=== PATIENT | female | born 1970 | race Caucasian/White ===

== ENCOUNTER → 2016-10-05 | Outpatient (CLI) | payer OTHER, MEDICAID ==
--- NOTE | 2016-10-06 | ECWPNPC ---
PATIENT NAME: GABINO PRECIADO : 1970 GENDER: FEMALE VISIT DATE: 10/05/2016 DISCHARGE DATE: 10/05/16 1144 VISIT LOCKED DATE TIME: PHYSICIAN: YOSELIN PRIDE RESOURCE: YOSELIN PRIDE REASON FOR APPOINTMENT 1. 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 PAIN THE PATIENT DESCRIBES THE PAIN... THE PATIENT DESCRIBES THE PAIN... FALL RISK SCREENING: SCREENING :NO FALLS IN THE PAST YEAR CURRENT MEDICATIONS TAKING TRAZODONE HCL 100 MG TABLET 1 TABLET AT BEDTIME ORALLY ONCE A DAY TAKING FERROUS SULFATE 325 (65 FE) MG TABLET 1 TABLET ORALLY ONCE A DAY TAKING TRAMADOL HCL 50 MG TABLET 1 TAB ORALLY FOR PAIN Q8H PRN MDD 3 MEDICATION LIST REVIEWED AND RECONCILED WITH THE PATIENT PAST MEDICAL HISTORY NECK PAIN ANEMIA VITAMIN D DEFIENCY IRREGULAR HEARTBEAAT ALLERGIES PENICILLIN: HIVES SOCIAL HISTORY GENERAL: TOBACCO USE ARE YOU A:NONSMOKER LEARNING BARRIERS / SPECIAL NEEDS ORIENTED TO PLAN OF CARE: PATIENT, PAIN MANAGEMENT PATIENT, ORIENTED TO PLAN OF CARE: PATIENT, PAIN MANAGEMENT PATIENT. NEW PATIENT PAIN DIARY TODAY'S VISITNOTES FROM 0-10, WHAT LEVEL IS YOUR PAIN TODAY?0 PAIN CLINIC PFS, CLERGY, PUBLIC HEALTH REFERRALS PFS REFERRAL NEEDED?NO CLERGY REFERRAL NEEDED?NO PUBLIC HEALTH REFERRAL NEEDED?NO WAS THE PROVIDER NOTIFIED OF ANY PERTINENT INFO?NO PFS REFERRAL NEEDED?NO CLERGY REFERRAL NEEDED?NO PUBLIC HEALTH REFERRAL NEEDED?NO WAS THE PROVIDER NOTIFIED OF ANY PERTINENT INFO?NO REVIEW OF SYSTEMS CONSTITUTIONAL: ANY CHANGE IN YOUR MEDICAL CONDITION? NO . RECENT ILLNESS DENIES . CHILLS NO . FEVER NO . WEIGHT LOSS DENIES . INFECTION: DO YOU HAVE NEW INFECTIONS? NO . DO YOU HAVE HISTORY OF MRSA? NO . MUSCULOSKELETAL: ANY NEW PATTERNS OF PAIN OR NUMBNESS? NO . GASTROENTEROLOGY: ANY NEW CHANGE IN BOWEL CONTROL? NO . GENITOURINARY: ANY NEW CHANGE IN BLADDER CONTROL? NO . IS THERE A CHANCE YOU COULD BE ? NO . HEMATOLOGY/LYMPH: DO YOU TAKE ANY BLOOD THINNERS? (FOR EXAMPLE- COUMADIN, PLAVIX, AGGRENOX, PLATEL, PRADAXA, OR XARELTO) NO . WHEN WAS YOUR LAST DOSE? DATE: TIME: . NEUROLOGY: HAVE YOU FALLEN IN THE PAST 6 MONTHS? NO . ANY NEW EXTREMITY NUMBNESS OR WEAKNESS? NO . CARDIOLOGY: DO YOU HAVE A PACEMAKER OR DEFIBRILLATOR? NO . CHEST PAIN DENIES . SHORTNESS OF BREATH DENIES . RESPIRATORY: HAVE YOU BEEN SICK IN THE PAST WEEK? NO . FEVER NO . FLU LIKE SYMPTOMS? NO . COUGH NO, DENIES . SHORTNESS OF BREATH DENIES . INTEGUMENTARY: DO YOU HAVE ANY RASHES OR OPEN SORES? NO . ALLERGIC/IMMUNO: ARE YOU ALLERGIC TO SHELLFISH OR IV DYE? NO . ANY NEW ALLERGIES? NO . PSYCHIATRIC: DO YOU HAVE THOUGHTS OF HURTING YOURSELF OR SOMEONE ELSE? NO . ARE YOU ABUSED, NEGLECTED, OR IN AN UNSAFE ENVIRONMENT? NO . ENDOCRINOLOGY: ARE YOU DIABETIC? NO . OTHER: DO YOU NEED ANY PRESCRIPTIONS? NO . IF YES, PLEASE LIST: ____ . ANY NEW PROBLEMS WITH YOUR MEDICATIONS? NO . WHEN DID YOU LAST EAT? ____ . WHEN DID YOU LAST DRINK? ____ . WHAT DID YOU LAST DRINK? ____ . NAME OF PERSON DRIVING YOU HOME? ____ . DO YOU HAVE ANY OTHER QUESTIONS OR CONCERNS NO . REVIEWED BY: PROVIDER: YOSELIN ODN . VITAL SIGNS WT 145 LBS, HT 63", BMI 25.68 INDEX, BP 114/55 MM HG, HR 82 /MIN, RR 16 /MIN, TEMP 96.3 F, OXYGEN SAT % 98, NA INITIALS TL 1119. EXAMINATION GENERAL EXAMINATION: LUNGS:LUNG SOUNDS ARE CLEAR. HEART:HEART RATE REGULAR. MUSCULOSKELETAL:*, MUSCLE STRENGTH TESTING 5/5 BILATERAL, UPPER EXTREMITIES. PALPATION: NEGATIVE FOR PAIN OVER CERVICAL SPINE. NEGATIVE FOR PAIN OVER CERVICAL PARSPINALS. DIAGNOSTIC: . ASSESSMENTS MYALGIA - M79.1 (PRIMARY) SPONDYLOSIS WITHOUT MYELOPATHY OR RADICULOPATHY, CERVICAL REGION - M47.812 SPONDYLOSIS WITHOUT MYELOPATHY OR RADICULOPATHY, CERVICOTHORACIC REGION - M47.813 CERVICAL DISC DISORDER AT C6-C7 LEVEL WITH RADICULOPATHY - M50.123 TREATMENT MYALGIA CONTINUE TRAMADOL HCL TABLET, 50 MG, 1 TAB, ORALLY FOR PAIN, Q8H PRN MDD 3 PROCEDURE CODES FA211 ESTABILISHED PATIENT [facility] CHARGE FOLLOW UP 2 MONTHS ELECTRONICALLY SIGNED BY ARIAN JOSÉ ON 10/05/2016 AT 01:18 PM EST DISCLAIMER : THIS IS A VISIT SUMMARY EXTRACTED FROM THE [employer] CHART. IT IS NOT A COPY OF THE [employer] PROGRESS NOTE. MTDD
== END ==
LOC: M PAIN 11:00
PROVIDERS: ATTEND Nurse Practitioner Family
DX: Z09 Encounter for follow-up examination after completed treatment for conditions other than malignant neoplasm (principal); G89.29 Other chronic pain; M79.1 Myalgia; M47.812 Spondylosis without myelopathy or radiculopathy, cervical region; M47.813 Spondylosis without myelopathy or radiculopathy, cervicothoracic region; M50.123 Cervical disc disorder at C6-C7 level with radiculopathy; D64.9 Anemia, unspecified; E55.9 Vitamin D deficiency, unspecified; Z88.0 Allergy status to penicillin; Z79.891 Long term (current) use of opiate analgesic; Z79.899 Other long term (current) drug therapy

== ENCOUNTER 2016-10-14 09:42 | Emergency (ER) | payer MEDICAID, OTHER ==
[2016-10-14] MEDS ORDERED: KETOROLAC 30 MG/ML VIAL (J1885) As Ordered ONE (11:04)
[2016-10-14 11:26] LABS: BASO % 0.3 % (0.0-1.0); EOS # 0.1 K/mm3 (0.0-0.50); EOS % 1.6 % (0.0-3.0); LARGE UNSTAINED CELL # 0.1 K/mm3 (0.0-0.4); LARGE UNSTAINED CELL % 1.7 % (0.0-4.0); LYMPH # 1.7 K/mm3 (1.5-4.5); LYMPH % 29.4 % (24.0-44.0); MEAN CORPUSCULAR HEMOGLOBIN 29.7 pg (27.0-33.0); MEAN CORPUSCULAR HGB CONC 33.9 g/dl (32.0-36.5); MEAN CORPUSCULAR VOLUME 87.6 fl (80.0-96.0); MONO # 0.4 K/mm3 (0.0-0.8); MONO % 6.3 % (0.0-5.0); NEUTROPHILS # 3.5 K/mm3 (1.8-7.7); NEUTROPHILS % 60.7 % (36.0-66.0); PLATELET COUNT, AUTOMATED 210 k/mm3 (150-450); RED CELL DISTRIBUTION WIDTH 14.6 % (11.5-14.5); WHITE BLOOD COUNT 5.7 K/mm3 (4.0-10.0)
--- NOTE | 2016-10-14 11:50 | REP ---
CT STUDY OF THE ABDOMEN AND PELVIS WITHOUT IV OR ORAL CONTRAST: Renal stone protocol. HISTORY: Right-sided flank pain. Comparison study July 01, 2011. FINDINGS: Digital service liaison representative radiograph today demonstrates an IUD to the left of midline in the pelvis along with a vaginal tampon. The lung bases show some subsegmental discoid atelectasis in the right lower lobe posterior lung gutter which is a new finding. There is a thin sliver of pleural fluid in the right base as well. This could be a subtle or early infiltrate. The liver and spleen are homogeneous in texture. The liver measures 16.6 cm in vertical span in the midclavicular line, which is at the upper range of normal. This is unchanged. No focal hepatic lesion is seen. The gallbladder and the pancreas are unremarkable. No adrenal lesion is seen on either side. There is no evidence of hydronephrosis or intrarenal calculus in either kidney. The patient is apparently status post gastric bypass surgery. Small and large intestinal bowel loops are normal in the upper abdomen and pelvis. A normal appendix is seen in the right lower quadrant. There is a tiny supraumbilical ventral hernia transmitting a small quantity of intra-abdominal fat. The IUD is seen in good position in the uterus, which is tipped somewhat to the left. No adnexal or pelvic mass is seen. No adenopathy noted. Bone window settings show no bony destructive lesion. IMPRESSION: 1. Infiltrate versus subsegmental atelectasis in the posterior aspect of the right lower lobe with a small amount of right pleural fluid. 2. No urinary tract calculus or hydronephrosis seen. 3. Borderline sized liver unchanged. 4. Patient status post gastric bypass. IUD in place along with vaginal tampon noted incidentally. 5. Very small supraumbilical ventral hernia transmitting a small quantity of omental fat. Signed by Josemanuel Wolff MD 10/14/2016 06:35 P
[2016-10-14 11:56] LABS: ALBUMIN 3.3 GM/DL (3.2-5.2); ALBUMIN/GLOBULIN RATIO 0.89 (1.00-1.93); ALKALINE PHOSPHATASE 47 U/L (45-117); ALT/SGPT 19 U/L (12-78); AMYLASE 34 U/L (25-115); ANION GAP 6 MEQ/L (8-16); AST/SGOT 23 U/L (15-37); BILIRUBIN,DIRECT < 0.1 MG/DL (0.0-0.2); BILIRUBIN,TOTAL 0.3 MG/DL (0.2-1.0); BLOOD UREA NITROGEN 14 MG/DL (7-18); CALCIUM LEVEL 8.2 MG/DL (8.5-10.1); CARBON DIOXIDE LEVEL 27 MEQ/L (21-32); CHLORIDE LEVEL 105 MEQ/L (98-107); CREATININE FOR GFR 0.75 MG/DL (0.55-1.02); GLOMERULAR FILTRATION RATE > 60.0 (>58); GLUCOSE, FASTING 70 MG/DL (70-105); POTASSIUM SERUM 4.5 MEQ/L (3.5-5.1); SODIUM LEVEL 138 MEQ/L (136-145)
--- NOTE | 2016-10-14 13:13 | REP ---
Chest two views HISTORY: Pleural effusion Comparison: 07/18/2016 The lungs are clear. The heart is normal in size. The pulmonary vasculature is normal in appearance. The bony structure is intact. IMPRESSION: No acute disease. Signed by Kermit Pappas MD 10/14/2016 01:04 P
--- NOTE | 2016-10-14 14:43 | EDDOCDS ---
Nurse's Notes [facility] Name: Gladys Temple Age: 46 yrs Sex: Female : 1970 Arrival Date: 10/14/2016 Time: 09:42 Bed I5 / M5 Private MD: Myriam Hurst Diagnosis: Pleural effusion in other conditions classified elsewhere;Abdominal and pelvic pain Presentation: 10/14 09:54 Presenting complaint: Patient states: Right low back pain began suddenly yesterday no mlb1 known injury. Acute neurological deficits are not present. Mechanism of Injury: No Mechanism of Injury. Adult Sepsis Screening: The patient does not have new or worsening altered mentation. Patient's respiratory rate is less than 22. Systolic blood pressure is greater than 100. Patient has a qSOFA score of 0- Negative Sepsis Screen. Suicide/Homicide risk assessment- the patient denies having any suicidal and/or homicidal ideations and does not present with any other emotional, behavioral or mental health complaints. Status: Patient is not a social service worker or dependent. Transition of care: patient was not received from another setting of care. 09:54 Acuity: PRABHJOT Level 3 mlb1 09:54 Method Of Arrival: Walkin/Carried/Asstd mlb1 Triage Assessment: 09:55 General: Appears in no apparent distress, Behavior is appropriate for age, cooperative. mlb1 Pain: Location: right low back Pain currently is 8 out of 10 on a pain scale. HIV screening NA for this visit Offered previously. 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 trazodone 50 mg Oral tab nightly 2. tramadol 50 mg Oral tab every 8 hours as needed - PMHx: cervical disc issues; insomnia; - PSHx: gastric sleeve; - Social history: Smoking status: Patient states was never smoker of tobacco. No barriers to communication noted, The patient speaks fluent Irish, Speaks appropriately for age. - Family history: Not pertinent. - : The pt / caregiver states he / she is not on anticoagulants. Home medication list is obtained from the patient. - Exposure Risk Screening:: None identified. Screenin:16 Screening information is obtained from the patient. Fall risk: No risks identified. ttb Assistance ADL's: requires no assistance with activities of daily living. Abuse/DV Screen: The patient / caregiver reports he/she is: not in a situation that causes fear, pain or injury. Nutritional screening: No deficits noted. Advance Directives: Currently, there is no health care proxy. home support is adequate. Assessment: 11:16 General: Appears in no apparent distress, uncomfortable, well nourished, well groomed, ttb Behavior is appropriate for age, cooperative, pleasant. Pain: Location: right mid / lower back. Neurological: Level of Consciousness is awake, alert. Cardiovascular: Chest pain is denied. Respiratory: No deficits noted. Airway is patent Denies cough, shortness of breath. GI: Abdomen is non- distended Reports mid back pain right sided. : Denies burning with urination, urinary frequency, urgency, vaginal bleeding. Derm: Skin is normal. Musculoskeletal: Range of motion intact in all extremities. Injury Description: No known injury. 12:30 General: Appears in no apparent distress, comfortable, Behavior is appropriate for age, ead cooperative. Neurological: No deficits noted. Respiratory: Airway is patent Respiratory effort is even, unlabored. Derm: Skin is pink, warm & dry. Musculoskeletal: Reports pain in back and right low back. 13:55 General: Appears reports adequate pain control. very casual presentation. comfort jmk measures offered.. Vital Signs: 09:43 BP 109 / 57; Pulse 83; Resp 20; Temp 98.2; Pulse Ox 99% ; Weight 63.5 kg; Height 5 ft. elp 4 in. (162.56 cm); Pain 8/10; 14:39 BP 107 / 59; Pulse 65; Resp 18; Temp 97.8(TE); Pulse Ox 98% on R/A; Pain 5/10; nb2 09:43 Body Mass Index 24.03 (63.50 kg, 162.56 cm) [facility] Vitals: 09:43 Log In Time: October 14, 2016 at 09:41. [facility] ED Course: 09:42 Patient visited by Xin Cochran PCA. elp 09:42 Patient moved to Waiting elp 09:43 Myriam Hurst is Private Physician. elp 09:43 Patient visited by Xin Cochran PCA. elp 09:43 Patient moved to Pre RCE elp 09:54 Patient visited by Brandon Harvey RN. mlb1 09:54 Triage Initiated mlb1 09:56 Patient visited by Brandon Harvey RN. mlb1 10:27 Patient moved to Triage 3 kc3 10:33 Jose Miguel Dyson PA is PHCP. btw 10:33 Genevieve Reeder MD is Attending Physician. btw 10:33 Patient visited by Jose Miguel Dyson PA. btw 10:58 Patient name changed from Gladys\S\Sayda\S\Temple\S\ to Gladys\S\K\S\Temple. EDMS 10:59 [facility] Payment Agreement was scanned into [employer] and attached to record. lg 11:16 Patient moved to TR4 mcp 11:16 The patient / caregiver is instructed regarding the plan of care and ED course. ttb Accompanied by Friend, Patient has correct armband on for positive identification. 11:16 Amylase Sent. ttb 11:16 Basic Metabolic Profile Sent. ttb 11:16 CBC with Diff Sent. ttb 11:16 Lipase Sent. ttb 11:16 Liver Profile Sent. ttb 11:16 Urinalysis Sent. ttb 11:16 Urine Culture Sent. ttb 11:16 No IV's were initiated during this patient's visit. Labs drawn. (by ED staff). Urine ttb collected. Clean catch specimen. 11:18 Patient visited by Bella Muñoz RN. ttb 11:52 CT ABD & PELVIS: No Contrast Returned. EDMS 12:03 Patient moved to I5 / M5 cmb 12:25 Patient visited by Livier Funez. nb2 12:33 Patient visited by Arcelia Cuadra,KENY. ead 12:33 -Blood Culture Sent. ead 12:33 Inserted saline lock: 22 gauge in right hand and blood collected. The patient tolerated ead the procedure well. 12:40 BLOOD CULTURES Sent. nb2 13:34 Chest, 2 View (pa\E\lat) Returned. EDMS 13:37 Patient visited by Livier Funez. nb2 13:56 Patient visited by Yonathan Curran,KENY. jmk 14:14 Myriam Hurst is Referral Physician. btw 14:40 Patient visited by Livier Funez. nb2 14:40 Discontinued lock intact, bleeding controlled, pressure dressing applied, No jmk redness/swelling at site. No procedures done that require assistance. Administered Medications: 11:16 Drug: ketorolac 30 mg [ketorolac 30 mg/mL (1 mL) injection solution (1 mL)] Route: IM; ttb Site: right gluteus; Order Results: Lab Order: Amylase; SPEC'10/14/16 11:07 Test: AMYLASE; Value: 34; Range: 25-115; Units: U/L; Status: F Lab Order: Basic Metabolic Profile; SPEC10/14/16 11:07 Test: GLUCOSE, FASTING; Value: 70; Range: 70-105; Units: MG/DL; Status: F Test: BLOOD UREA NITROGEN; Value: 14; Range: 7-18; Units: MG/DL; Status: F Test: CREATININE FOR GFR; Value: 0.75; Range: 0.55-1.02; Units: MG/DL; Status: F Test: GLOMERULAR FILTRATION RATE; Value: > 60.0; Range: >58; Status: F Test: SODIUM LEVEL; Value: 138; Range: 136-145; Units: MEQ/L; Status: F Test: POTASSIUM SERUM; Value: 4.5; Range: 3.5-5.1; Units: MEQ/L; Status: F Test: CHLORIDE LEVEL; Value: 105; Range: 98-107; Units: MEQ/L; Status: F Test: CARBON DIOXIDE LEVEL; Value: 27; Range: 21-32; Units: MEQ/L; Status: F Test: ANION GAP; Value: 6; Range: 8-16; Abnormal: Below low normal; Units: MEQ/L; Status: F Test: CALCIUM LEVEL; Value: 8.2; Range: 8.5-10.1; Abnormal: Below low normal; Units: MG/DL; Status: F Test Note: ; Units are mL/min/1.73 m2 Chronic Kidney Disease Staging per NKF: Stage I & II GFR >=60 Normal to Mildly Decreased Stage III GFR 30-59 Moderately Decreased Stage IV GFR 15-29 Severely Decreased Stage V GFR <15 Very Little GFR Left ESRD GFR <15 on [facility] Lab Order: CBC with Diff; SPEC'10/14/16 11:07 Test: WHITE BLOOD COUNT; Value: 5.7; Range: 4.0-10.0; Units: K/mm3; Status: F Test: RED BLOOD COUNT; Value: 4.12; Range: 4.00-5.40; Units: M/mm3; Status: F Test: HEMOGLOBIN; Value: 12.2; Range: 12.0-16.0; Units: g/dl; Status: F Test: HEMATOCRIT; Value: 36.1; Range: 36.0-47.0; Units: %; Status: F Test: MEAN CORPUSCULAR VOLUME; Value: 87.6; Range: 80.0-96.0; Units: fl; Status: F Test: MEAN CORPUSCULAR HEMOGLOBIN; Value: 29.7; Range: 27.0-33.0; Units: pg; Status: F Test: MEAN CORPUSCULAR HGB CONC; Value: 33.9; Range: 32.0-36.5; Units: g/dl; Status: F Test: RED CELL DISTRIBUTION WIDTH; Value: 14.6; Range: 11.5-14.5; Abnormal: Above high normal; Units: %; Status: F Test: PLATELET COUNT, AUTOMATED; Value: 210; Range: 150-450; Units: k/mm3; Status: F Test: NEUTROPHILS %; Value: 60.7; Range: 36.0-66.0; Units: %; Status: F Test: LYMPH %; Value: 29.4; Range: 24.0-44.0; Units: %; Status: F Test: MONO %; Value: 6.3; Range: 0.0-5.0; Abnormal: Above high normal; Units: %; Status: F Test: EOS %; Value: 1.6; Range: 0.0-3.0; Units: %; Status: F Test: BASO %; Value: 0.3; Range: 0.0-1.0; Units: %; Status: F Test: LARGE UNSTAINED CELL %; Value: 1.7; Range: 0.0-4.0; Units: %; Status: F Test: NEUTROPHILS #; Value: 3.5; Range: 1.8-7.7; Units: K/mm3; Status: F Test: LYMPH #; Value: 1.7; Range: 1.5-4.5; Units: K/mm3; Status: F Test: MONO #; Value: 0.4; Range: 0.0-0.8; Units: K/mm3; Status: F Test: EOS #; Value: 0.1; Range: 0.0-0.50; Units: K/mm3; Status: F Test: BASO #; Value: 0.0; Range: 0.0-0.2; Units: K/mm3; Status: F Test: LARGE UNSTAINED CELL #; Value: 0.1; Range: 0.0-0.4; Units: K/mm3; Status: F Lab Order: Lipase; [facility]' 10/14/16 11:07 Test: LIPASE; Value: 159; Range: 73-393; Units: U/L; Status: F Lab Order: Liver Profile; [facility]' 10/14/16 11:07 Test: AST/SGOT; Value: 23; Range: 15-37; Units: U/L; Status: F Test: ALT/SGPT; Value: 19; Range: 12-78; Units: U/L; Status: F Test: ALKALINE PHOSPHATASE; Value: 47; Range: 45-117; Units: U/L; Status: F Test: BILIRUBIN,TOTAL; Value: 0.3; Range: 0.2-1.0; Units: MG/DL; Status: F Test: BILIRUBIN,DIRECT; Value: < 0.1; Range: 0.0-0.2; Units: MG/DL; Status: F Test: TOTAL PROTEIN; Value: 7.0; Range: 6.4-8.2; Units: GM/DL; Status: F Test: ALBUMIN; Value: 3.3; Range: 3.2-5.2; Units: GM/DL; Status: F Test: ALBUMIN/GLOBULIN RATIO; Value: 0.89; Range: 1.00-1.93; Abnormal: Below low normal; Status: F Lab Order: Urinalysis; SPEC' 10/14/16 11:07 Test: APPEARANCE, URINE; Value: CLEAR; Range: CLEAR; Status: F Test: COLOR, URINE; Value: YELLOW; Range: YELLOW; Status: F Test: PH,URINE; Value: 5.0; Range: 5.0-9.0; Units: UNITS; Status: F Test: SPECIFIC GRAVITY URINE AUTO; Value: 1.026; Range: 1.002-1.035; Status: F Test: PROTEIN, URINE AUTO; Value: NEGATIVE; Range: NEGATIVE; Units: mg/dL; Status: F Test: GLUCOSE, URINE (UA) AUTO; Value: NEGATIVE; Range: NEGATIVE; Units: mg/dL; Status: F Test: KETONE, URINE AUTO; Value: TRACE; Range: NEGATIVE; Abnormal: Above high normal; Units: mg/dL; Status: F Test: UROBILINOGEN, URINE AUTO; Value: 0.2; Range: 0.0-2.0; Units: mg/dL; Status: F Test: BILIRUBIN, URINE AUTO; Value: NEGATIVE; Range: NEGATIVE; Status: F Test: NITRITE, URINE AUTO; Value: NEGATIVE; Range: NEGATIVE; Status: F Test: LEUKOCYTE ESTERASE, URINE AUTO; Value: NEGATIVE; Range: NEGATIVE; Status: F Test: BLOOD, URINE BLOOD; Value: 1+; Range: NEGATIVE; Abnormal: Above high normal; Status: F Test: WBC, URINE AUTO; Value: 1; Range: 0-3; Units: /HPF; Status: F Test: RBC, URINE AUTO; Value: 4; Range: 0-3; Abnormal: Above high normal; Units: /HPF; Status: F Test: BACTERIA, URINE AUTO; Value: NEGATIVE; Range: NEGATIVE; Status: F Test: SQUAMOUS EPITHELIAL CELL UR AU; Value: 4; Range: 0-6; Units: /HPF; Status: F Test: MUCUS, URINE; Value: SMALL; Range: NEGATIVE; Status: F Test: HYALINE CAST, URINE AUTO; Value: 0; Range: 0-1; Units: /LPF; Status: F Radiology Order: CT ABD & PELVIS: No Contrast Test: CT ABD & PELVIS: No Contrast REASON FOR EXAMINATION: RIGHT flank pain; CT STUDY OF THE ABDOMEN AND PELVIS WITHOUT IV OR ORAL CONTRAST: Renal stone; protocol.; ; HISTORY: Right-sided flank pain.; ; Comparison study July 01, 2011.; ; FINDINGS: Digital pipeline dispatch operator radiograph today demonstrates an IUD to the left of; midline in the pelvis along with a vaginal tampon. The lung bases show some; subsegmental discoid atelectasis in the right lower lobe posterior lung gutter; which is a new finding. There is a thin sliver of pleural fluid in the right; base as well. This could be a subtle or early infiltrate.; ; The liver and spleen are homogeneous in texture. The liver measures 16.6 cm in; vertical span in the midclavicular line, which is at the upper range of normal.; This is unchanged. No focal hepatic lesion is seen. The gallbladder and the; pancreas are unremarkable. No adrenal lesion is seen on either side.; ; There is no evidence of hydronephrosis or intrarenal calculus in either kidney.; The patient is apparently status post gastric bypass surgery. Small and large; intestinal bowel loops are normal in the upper abdomen and pelvis. A normal; appendix is seen in the right lower quadrant. There is a tiny supraumbilical; ventral hernia transmitting a small quantity of intra-abdominal fat.; ; The IUD is seen in good position in the uterus, which is tipped somewhat to the; left. No adnexal or pelvic mass is seen. No adenopathy noted. Bone window; settings show no bony destructive lesion.; ; IMPRESSION:; 1. Infiltrate versus subsegmental atelectasis in the posterior aspect of the; right lower lobe with a small amount of right pleural fluid.; 2. No urinary tract calculus or hydronephrosis seen.; 3. Borderline sized liver unchanged.; 4. Patient status post gastric bypass. IUD in place along with vaginal tampon; noted incidentally.; 5. Very small supraumbilical ventral hernia transmitting a small quantity of; omental fat.; ; ; ; ; Unreviewed; Radiology Order: Chest, 2 View (pa\E\lat) Test: Chest, 2 View (pa\E\lat) REASON FOR EXAMINATION: ? pleural effusion on abd CT; Chest two views; ; HISTORY: Pleural effusion; ; Comparison: 07/18/2016; ; The lungs are clear. The heart is normal in size. The pulmonary vasculature is; normal in appearance. The bony structure is intact.; ; IMPRESSION: No acute disease.; ; ; Signed by; Kermit Pappas MD 10/14/2016 01:04 P; Outcome: 11:16 CT Study completed. ttb 14:15 Discharge ordered by Provider. btw 14:40 Discharge Assessment: Patient awake, alert and oriented x 3. No cognitive and/or jmk functional deficits noted. Patient verbalized understanding of disposition instructions. patient administered narcotics - no. The following High Risk Discharge criteria are identified: None. Discharged to home ambulatory. Condition: good. Discharge instructions given to patient, Instructed on discharge instructions, follow up and referral plans. medication usage, no driving heavy equipment, Demonstrated understanding of instructions, medications, Pt was receptive of discharge instructions/ teaching. Prescriptions given X 1. Property :Personal belongings accompany Pt. 14:42 Patient left the ED. adonay Signatures: Dispatcher [employer] EDYonathan GomezRN Ivon Pelayo RN Dion Rodriguez mcp, Brandon Weinberg lg RN RN mlb1 Jose Miguel Dyson PA PA Dennise Dos Santos Teresa RN RN ttb Xin Cocharn, Arcelia AstorgaRN Ivana MahanRN RN kc3 Livier Funez2 TALA
--- NOTE | 2016-10-14 14:43 | EDDOCDS ---
Physician Documentation [facility] Name: Gladys Temple Age: 46 yrs Sex: Female : 1970 Arrival Date: 10/14/2016 Time: 09:42 Bed I5 / M5 Private MD: Myriam Hurst Disposition: 10/14/16 14:15 Discharged to Home/Self Care. Impression: Pleural effusion in other conditions classified elsewhere, Abdominal and pelvic pain. - Condition is Stable. - Discharge Instructions: Pleural Effusion, Flank Pain, Uybs-tz-Teib. - Prescriptions for Zithromax Z- Shaheen 250 mg Oral Tablet - take 1 tablet by ORAL route as directed for 5 days Day 1- take two tablets once. Day 2, 3, 4 , 5 take one tablet once daily.; 6 tablet. - Medication Reconciliation, Local Pharmacy Hours form. - Follow up: Myriam Hurst; When: Call to arrange an appointment; Reason: Further diagnostic work-up, Recheck today's complaints, Continuance of care. - Problem is new. - Symptoms are unchanged. Historical: - Allergies: PENICILLINS; - Home Meds: 1. trazodone 50 mg Oral tab nightly 2. tramadol 50 mg Oral tab every 8 hours as needed - PMHx: cervical disc issues; insomnia; - PSHx: gastric sleeve; - Social history: Smoking status: Patient states was never smoker of tobacco. No barriers to communication noted, The patient speaks fluent Chinese, Speaks appropriately for age. - Family history: Not pertinent. - : The pt / caregiver states he / she is not on anticoagulants. Home medication list is obtained from the patient. - Exposure Risk Screening:: None identified. DIRECTOR TRANSLATION: 10/14 09:56 LMP 10/12/2016 mlb1 Vital Signs: 09:43 BP 109 / 57; Pulse 83; Resp 20; Temp 98.2; Pulse Ox 99% ; Weight 63.5 kg / 139.99 lbs; elp Height 5 ft. 4 in. (162.56 cm); Pain 8/10; 14:39 BP 107 / 59; Pulse 65; Resp 18; Temp 97.8(TE); Pulse Ox 98% on R/A; Pain 5/10; nb2 09:43 Body Mass Index 24.03 (63.50 kg, 162.56 cm) elp MDM: 10:44 Financial registration complete. lg 10:45 ketorolac 30 mg IM once ordered. btw 10:46 Amylase Ordered. EDMS 10:46 Basic Metabolic Profile Ordered. EDMS 10:46 CBC with Diff Ordered. EDMS 10:46 Lipase Ordered. EDMS 10:46 Liver Profile Ordered. EDMS 10:46 Urinalysis Ordered. EDMS 10:46 Urine Culture Ordered. EDMS 10:47 NOTHING BY MOUTH+DIET ordered. EDMS 10:48 CT ABD & PELVIS: No Contrast Ordered. EDMS 10:59 [facility] [place] was scanned into [employer] and attached to record. lg 12:02 Basic Metabolic Profile Reviewed. btw 12:02 CBC with Diff Reviewed. btw 12:02 Liver Profile Reviewed. btw 12:02 Urinalysis Reviewed. btw 12:02 Amylase Reviewed. btw 12:02 Lipase Reviewed. btw 12:02 CT ABD & PELVIS: No Contrast Reviewed. btw 12:08 IV Saline Lock ordered. btw 12:09 Chest, 2 View (pa\E\lat) Ordered. EDMS 12:15 -Blood Culture (Adults Only), peripheral from different site, or from device/port/PICC btw etc. if present ordered. 12:17 -Blood Culture Ordered. EDMS 12:18 -Blood Culture (Adults Only), peripheral from different site, or from device/port/PICC nb2 etc. if present complete. 12:18 BLOOD CULTURES Ordered. EDMS Administered Medications: 11:16 Drug: ketorolac 30 mg [ketorolac 30 mg/mL (1 mL) injection solution (1 mL)] Route: IM; ttb Site: right gluteus; Signatures: Dispatcher MedHost EDMS Yonathan Curran,RN RN Dion Benson, Reg Reg lg Brandon Harvey RN RN mlb1 Jose Miguel Dyson PA PA btw Bella Muñoz RN RN ttb Livier Funez2 The chart was reviewed and I authenticate all verbal orders and agree with the evaluation and treatment provided.Attachments: 10:59 [facility] Payment Agreement lg MTDD
--- NOTE | 2016-10-16 15:42 | EDDOCDS ---
Physician Documentation [facility] Name: Gladys Temple Age: 46 yrs Sex: Female : 1970 Arrival Date: 10/14/2016 Time: 09:42 Bed I5 / M5 Private MD: Myriam Hurst Disposition: 10/14/16 14:15 Discharged to Home/Self Care. Impression: Pleural effusion in other conditions classified elsewhere, Abdominal and pelvic pain. - Condition is Stable. - Discharge Instructions: Pleural Effusion, Flank Pain, Euob-yd-Gocl. - Prescriptions for Zithromax Z- Shaheen 250 mg Oral Tablet - take 1 tablet by ORAL route as directed for 5 days Day 1- take two tablets once. Day 2, 3, 4 , 5 take one tablet once daily.; 6 tablet. - Medication Reconciliation, Local Pharmacy Hours form. - Follow up: Myriam Hurst; When: Call to arrange an appointment; Reason: Further diagnostic work-up, Recheck today's complaints, Continuance of care. - Problem is new. - Symptoms are unchanged. Historical: - Allergies: PENICILLINS; - Home Meds: 1. trazodone 50 mg Oral tab nightly 2. tramadol 50 mg Oral tab every 8 hours as needed - PMHx: cervical disc issues; insomnia; - PSHx: gastric sleeve; - Social history: Smoking status: Patient states was never smoker of tobacco. No barriers to communication noted, The patient speaks fluent Romanian, Speaks appropriately for age. - Family history: Not pertinent. - : The pt / caregiver states he / she is not on anticoagulants. Home medication list is obtained from the patient. - Exposure Risk Screening:: None identified. 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 4 in. (162.56 cm); Pain 8/10; 14:39 BP 107 / 59; Pulse 65; Resp 18; Temp 97.8(TE); Pulse Ox 98% on R/A; Pain 5/10; nb2 09:43 Body Mass Index 24.03 (63.50 kg, 162.56 cm) elp MDM: 10:44 Financial registration complete. lg 10:45 ketorolac 30 mg IM once ordered. btw 10:46 Amylase Ordered. EDMS 10:46 Basic Metabolic Profile Ordered. EDMS 10:46 CBC with Diff Ordered. EDMS 10:46 Lipase Ordered. EDMS 10:46 Liver Profile Ordered. EDMS 10:46 Urinalysis Ordered. EDMS 10:46 Urine Culture Ordered. EDMS 10:47 NOTHING BY MOUTH+DIET ordered. EDMS 10:48 CT ABD & PELVIS: No Contrast Ordered. EDMS 10:59 [facility] Payment Agreement was scanned into Better[employer] and attached to record. lg 12:02 Basic Metabolic Profile Reviewed. btw 12:02 CBC with Diff Reviewed. btw 12:02 Liver Profile Reviewed. btw 12:02 Urinalysis Reviewed. btw 12:02 Amylase Reviewed. btw 12:02 Lipase Reviewed. btw 12:02 CT ABD & PELVIS: No Contrast Reviewed. btw 12:08 IV Saline Lock ordered. btw 12:09 Chest, 2 View (pa\E\lat) Ordered. EDMS 12:15 -Blood Culture (Adults Only), peripheral from different site, or from device/port/PICC btw etc. if present ordered. 12:17 -Blood Culture Ordered. EDMS 12:18 -Blood Culture (Adults Only), peripheral from different site, or from device/port/PICC nb2 etc. if present complete. 12:18 BLOOD CULTURES Ordered. EDMS 15:22 T-Sheet-- Draft Copy was scanned into [employer] and attached to record. gb Administered Medications: 11:16 Drug: ketorolac 30 mg [ketorolac 30 mg/mL (1 mL) injection solution (1 mL)] Route: IM; ttb Site: right gluteus; Signatures: Dispatcher MedHost EDMS Yonathan Curran,RN RN Rochelle Miller, Reg Reg Dion Banegas, Reg Reg Brandon Phelps RN RN mlb1 Jose Miguel Dyson PA PA btw Bella Muñoz RN RN ttb Livier Funez nb2 The chart was reviewed and I authenticate all verbal orders and agree with the evaluation and treatment provided.Attachments: 10:59 [facility] Payment Agreement lg 15:22 T-Sheet-- Draft Copy gb Chart Complete MTDD
--- NOTE | 2016-10-16 15:42 | EDDOCDS ---
Nurse's Notes [facility] Name: Gladys Temple Age: 46 yrs Sex: Female : 1970 Arrival Date: 10/14/2016 Time: 09:42 Bed I5 / M5 Private MD: Myriam Hurst Diagnosis: Pleural effusion in other conditions classified elsewhere;Abdominal and pelvic pain Presentation: 10/14 09:54 Presenting complaint: Patient states: Right low back pain began suddenly yesterday no mlb1 known injury. Acute neurological deficits are not present. Mechanism of Injury: No Mechanism of Injury. Adult Sepsis Screening: The patient does not have new or worsening altered mentation. Patient's respiratory rate is less than 22. Systolic blood pressure is greater than 100. Patient has a qSOFA score of 0- Negative Sepsis Screen. Suicide/Homicide risk assessment- the patient denies having any suicidal and/or homicidal ideations and does not present with any other emotional, behavioral or mental health complaints. Status: Patient is not a career services representative or dependent. Transition of care: patient was not received from another setting of care. 09:54 Acuity: PRABHJOT Level 3 mlb1 09:54 Method Of Arrival: Walkin/Carried/Asstd mlb1 Triage Assessment: 09:55 General: Appears in no apparent distress, Behavior is appropriate for age, cooperative. mlb1 Pain: Location: right low back Pain currently is 8 out of 10 on a pain scale. HIV screening NA for this visit Offered previously. EPIC WILLOW ANALYST: 09:56 LMP 10/12/2016 mlb1 Historical: - Allergies: PENICILLINS; - Home Meds: 1. trazodone 50 mg Oral tab nightly 2. tramadol 50 mg Oral tab every 8 hours as needed - PMHx: cervical disc issues; insomnia; - PSHx: gastric sleeve; - Social history: Smoking status: Patient states was never smoker of tobacco. No barriers to communication noted, The patient speaks fluent Burmese, Speaks appropriately for age. - Family history: Not pertinent. - : The pt / caregiver states he / she is not on anticoagulants. Home medication list is obtained from the patient. - Exposure Risk Screening:: None identified. Screenin:16 Screening information is obtained from the patient. Fall risk: No risks identified. ttb Assistance ADL's: requires no assistance with activities of daily living. Abuse/DV Screen: The patient / caregiver reports he/she is: not in a situation that causes fear, pain or injury. Nutritional screening: No deficits noted. Advance Directives: Currently, there is no health care proxy. home support is adequate. Assessment: 11:16 General: Appears in no apparent distress, uncomfortable, well nourished, well groomed, ttb Behavior is appropriate for age, cooperative, pleasant. Pain: Location: right mid / lower back. Neurological: Level of Consciousness is awake, alert. Cardiovascular: Chest pain is denied. Respiratory: No deficits noted. Airway is patent Denies cough, shortness of breath. GI: Abdomen is non- distended Reports mid back pain right sided. : Denies burning with urination, urinary frequency, urgency, vaginal bleeding. Derm: Skin is normal. Musculoskeletal: Range of motion intact in all extremities. Injury Description: No known injury. 12:30 General: Appears in no apparent distress, comfortable, Behavior is appropriate for age, ead cooperative. Neurological: No deficits noted. Respiratory: Airway is patent Respiratory effort is even, unlabored. Derm: Skin is pink, warm & dry. Musculoskeletal: Reports pain in back and right low back. 13:55 General: Appears reports adequate pain control. very casual presentation. comfort jmk measures offered.. Vital Signs: 09:43 BP 109 / 57; Pulse 83; Resp 20; Temp 98.2; Pulse Ox 99% ; Weight 63.5 kg; Height 5 ft. elp 4 in. (162.56 cm); Pain 8/10; 14:39 BP 107 / 59; Pulse 65; Resp 18; Temp 97.8(TE); Pulse Ox 98% on R/A; Pain 5/10; nb2 09:43 Body Mass Index 24.03 (63.50 kg, 162.56 cm) [facility] Vitals: 09:43 Log In Time: October 14, 2016 at 09:41. [facility] ED Course: 09:42 Patient visited by Xin Cochran PCA. elp 09:42 Patient moved to Waiting elp 09:43 Myriam Hurst is Private Physician. elp 09:43 Patient visited by Xin Cochran PCA. elp 09:43 Patient moved to Pre RCE elp 09:54 Patient visited by Brandon Harvey RN. mlb1 09:54 Triage Initiated mlb1 09:56 Patient visited by Brandon Harvey RN. mlb1 10:27 Patient moved to Triage 3 kc3 10:33 Jose Miguel Dyson PA is PHCP. btw 10:33 Genevieve Reeder MD is Attending Physician. btw 10:33 Patient visited by Jose Miguel Dyson PA. btw 10:58 Patient name changed from Gladys\S\Sayda\S\Temple\S\ to Gladys\S\K\S\Temple. EDMS 10:59 [facility] Payment Agreement was scanned into [employer] and attached to record. lg 11:16 Patient moved to TR4 mcp 11:16 The patient / caregiver is instructed regarding the plan of care and ED course. ttb Accompanied by Friend, Patient has correct armband on for positive identification. 11:16 Amylase Sent. ttb 11:16 Basic Metabolic Profile Sent. ttb 11:16 CBC with Diff Sent. ttb 11:16 Lipase Sent. ttb 11:16 Liver Profile Sent. ttb 11:16 Urinalysis Sent. ttb 11:16 Urine Culture Sent. ttb 11:16 No IV's were initiated during this patient's visit. Labs drawn. (by ED staff). Urine ttb collected. Clean catch specimen. 11:18 Patient visited by Bella Muñoz RN. ttb 11:52 CT ABD & PELVIS: No Contrast Returned. EDMS 12:03 Patient moved to I5 / M5 cmb 12:25 Patient visited by Livier Funez. nb2 12:33 Patient visited by Arcelia Cuadra,KENY. ead 12:33 -Blood Culture Sent. ead 12:33 Inserted saline lock: 22 gauge in right hand and blood collected. The patient tolerated ead the procedure well. 12:40 BLOOD CULTURES Sent. nb2 13:34 Chest, 2 View (pa\E\lat) Returned. EDMS 13:37 Patient visited by Livier Funez. nb2 13:56 Patient visited by Yonathan Curran,KENY. jmk 14:14 Myriam Hurst is Referral Physician. btw 14:40 Patient visited by Livier Funez. nb2 14:40 Discontinued lock intact, bleeding controlled, pressure dressing applied, No jmk redness/swelling at site. No procedures done that require assistance. 15:22 T-Sheet-- Draft Copy was scanned into [employer] and attached to record. gb 19:10 CT ABD & PELVIS: No Contrast Returned. EDMS Administered Medications: 11:16 Drug: ketorolac 30 mg [ketorolac 30 mg/mL (1 mL) injection solution (1 mL)] Route: IM; ttb Site: right gluteus; Order Results: Lab Order: Amylase; SPEC'M 10/14/16 11:07 Test: AMYLASE; Value: 34; Range: 25-115; Units: U/L; Status: F Lab Order: Basic Metabolic Profile; SPEC'M 10/14/16 11:07 Test: GLUCOSE, FASTING; Value: 70; Range: 70-105; Units: MG/DL; Status: F Test: BLOOD UREA NITROGEN; Value: 14; Range: 7-18; Units: MG/DL; Status: F Test: CREATININE FOR GFR; Value: 0.75; Range: 0.55-1.02; Units: MG/DL; Status: F Test: GLOMERULAR FILTRATION RATE; Value: > 60.0; Range: >58; Status: F Test: SODIUM LEVEL; Value: 138; Range: 136-145; Units: MEQ/L; Status: F Test: POTASSIUM SERUM; Value: 4.5; Range: 3.5-5.1; Units: MEQ/L; Status: F Test: CHLORIDE LEVEL; Value: 105; Range: 98-107; Units: MEQ/L; Status: F Test: CARBON DIOXIDE LEVEL; Value: 27; Range: 21-32; Units: MEQ/L; Status: F Test: ANION GAP; Value: 6; Range: 8-16; Abnormal: Below low normal; Units: MEQ/L; Status: F Test: CALCIUM LEVEL; Value: 8.2; Range: 8.5-10.1; Abnormal: Below low normal; Units: MG/DL; Status: F Test Note: ; Units are mL/min/1.73 m2 Chronic Kidney Disease Staging per NKF: Stage I & II GFR >=60 Normal to Mildly Decreased Stage III GFR 30-59 Moderately Decreased Stage IV GFR 15-29 Severely Decreased Stage V GFR <15 Very Little GFR Left ESRD GFR <15 on MULTIPLE PRESSURE RIVETER OPERATOR Lab Order: CBC with Diff; SPEC'M 10/14/16 11:07 Test: WHITE BLOOD COUNT; Value: 5.7; Range: 4.0-10.0; Units: K/mm3; Status: F Test: RED BLOOD COUNT; Value: 4.12; Range: 4.00-5.40; Units: M/mm3; Status: F Test: HEMOGLOBIN; Value: 12.2; Range: 12.0-16.0; Units: g/dl; Status: F Test: HEMATOCRIT; Value: 36.1; Range: 36.0-47.0; Units: %; Status: F Test: MEAN CORPUSCULAR VOLUME; Value: 87.6; Range: 80.0-96.0; Units: fl; Status: F Test: MEAN CORPUSCULAR HEMOGLOBIN; Value: 29.7; Range: 27.0-33.0; Units: pg; Status: F Test: MEAN CORPUSCULAR HGB CONC; Value: 33.9; Range: 32.0-36.5; Units: g/dl; Status: F Test: RED CELL DISTRIBUTION WIDTH; Value: 14.6; Range: 11.5-14.5; Abnormal: Above high normal; Units: %; Status: F Test: PLATELET COUNT, AUTOMATED; Value: 210; Range: 150-450; Units: k/mm3; Status: F Test: NEUTROPHILS %; Value: 60.7; Range: 36.0-66.0; Units: %; Status: F Test: LYMPH %; Value: 29.4; Range: 24.0-44.0; Units: %; Status: F Test: MONO %; Value: 6.3; Range: 0.0-5.0; Abnormal: Above high normal; Units: %; Status: F Test: EOS %; Value: 1.6; Range: 0.0-3.0; Units: %; Status: F Test: BASO %; Value: 0.3; Range: 0.0-1.0; Units: %; Status: F Test: LARGE UNSTAINED CELL %; Value: 1.7; Range: 0.0-4.0; Units: %; Status: F Test: NEUTROPHILS #; Value: 3.5; Range: 1.8-7.7; Units: K/mm3; Status: F Test: LYMPH #; Value: 1.7; Range: 1.5-4.5; Units: K/mm3; Status: F Test: MONO #; Value: 0.4; Range: 0.0-0.8; Units: K/mm3; Status: F Test: EOS #; Value: 0.1; Range: 0.0-0.50; Units: K/mm3; Status: F Test: BASO #; Value: 0.0; Range: 0.0-0.2; Units: K/mm3; Status: F Test: LARGE UNSTAINED CELL #; Value: 0.1; Range: 0.0-0.4; Units: K/mm3; Status: F Lab Order: Lipase; SPEC' 10/14/16 11:07 Test: LIPASE; Value: 159; Range: 73-393; Units: U/L; Status: F Lab Order: Liver Profile; [facility]' 10/14/16 11:07 Test: AST/SGOT; Value: 23; Range: 15-37; Units: U/L; Status: F Test: ALT/SGPT; Value: 19; Range: 12-78; Units: U/L; Status: F Test: ALKALINE PHOSPHATASE; Value: 47; Range: 45-117; Units: U/L; Status: F Test: BILIRUBIN,TOTAL; Value: 0.3; Range: 0.2-1.0; Units: MG/DL; Status: F Test: BILIRUBIN,DIRECT; Value: < 0.1; Range: 0.0-0.2; Units: MG/DL; Status: F Test: TOTAL PROTEIN; Value: 7.0; Range: 6.4-8.2; Units: GM/DL; Status: F Test: ALBUMIN; Value: 3.3; Range: 3.2-5.2; Units: GM/DL; Status: F Test: ALBUMIN/GLOBULIN RATIO; Value: 0.89; Range: 1.00-1.93; Abnormal: Below low normal; Status: F Lab Order: Urinalysis; [facility] 10/14/16 11:07 Test: APPEARANCE, URINE; Value: CLEAR; Range: CLEAR; Status: F Test: COLOR, URINE; Value: YELLOW; Range: YELLOW; Status: F Test: PH,URINE; Value: 5.0; Range: 5.0-9.0; Units: UNITS; Status: F Test: SPECIFIC GRAVITY URINE AUTO; Value: 1.026; Range: 1.002-1.035; Status: F Test: PROTEIN, URINE AUTO; Value: NEGATIVE; Range: NEGATIVE; Units: mg/dL; Status: F Test: GLUCOSE, URINE (UA) AUTO; Value: NEGATIVE; Range: NEGATIVE; Units: mg/dL; Status: F Test: KETONE, URINE AUTO; Value: TRACE; Range: NEGATIVE; Abnormal: Above high normal; Units: mg/dL; Status: F Test: UROBILINOGEN, URINE AUTO; Value: 0.2; Range: 0.0-2.0; Units: mg/dL; Status: F Test: BILIRUBIN, URINE AUTO; Value: NEGATIVE; Range: NEGATIVE; Status: F Test: NITRITE, URINE AUTO; Value: NEGATIVE; Range: NEGATIVE; Status: F Test: LEUKOCYTE ESTERASE, URINE AUTO; Value: NEGATIVE; Range: NEGATIVE; Status: F Test: BLOOD, URINE BLOOD; Value: 1+; Range: NEGATIVE; Abnormal: Above high normal; Status: F Test: WBC, URINE AUTO; Value: 1; Range: 0-3; Units: /HPF; Status: F Test: RBC, URINE AUTO; Value: 4; Range: 0-3; Abnormal: Above high normal; Units: /HPF; Status: F Test: BACTERIA, URINE AUTO; Value: NEGATIVE; Range: NEGATIVE; Status: F Test: SQUAMOUS EPITHELIAL CELL UR AU; Value: 4; Range: 0-6; Units: /HPF; Status: F Test: MUCUS, URINE; Value: SMALL; Range: NEGATIVE; Status: F Test: HYALINE CAST, URINE AUTO; Value: 0; Range: 0-1; Units: /LPF; Status: F Lab Order: Urine Culture; SPEC'M 10/14/16 11:07 Test: URINE CULTURE; Value: <EXTERNAL COMMENT eCWMed> FULL REPORT IN LAB NOTES (eCW and Medent).; Status: F Test: URINE CULTURE; Value: URINE CULTURE RESULT SPECIMEN APPEARS CONTAMINATED; Status: F Lab Order: -Blood Culture; SPEC'M 10/14/16 12:32 Test: BLOOD CULTURE; Value: No growth after 24 hours . All specimens observed; Status: F Test: BLOOD CULTURE; Value: for 5 days. Results final at that time.; Status: F Test: BLOOD CULTURE; Value: No Growth after 48 hours. All Specimens observed; Status: F Test: BLOOD CULTURE; Value: for 7 days. Results final at that time.; Status: F Lab Order: BLOOD CULTURES; SPEC'M 10/14/16 12:39 Test: BLOOD CULTURE; Value: No growth after 24 hours . All specimens observed; Status: F Test: BLOOD CULTURE; Value: for 5 days. Results final at that time.; Status: F Test: BLOOD CULTURE; Value: No Growth after 48 hours. All Specimens observed; Status: F Test: BLOOD CULTURE; Value: for 7 days. Results final at that time.; Status: F Radiology Order: CT ABD & PELVIS: No Contrast Test: CT ABD & PELVIS: No Contrast REASON FOR EXAMINATION: RIGHT flank pain; CT STUDY OF THE ABDOMEN AND PELVIS WITHOUT IV OR ORAL CONTRAST: Renal stone; protocol.; ; HISTORY: Right-sided flank pain.; ; Comparison study July 01, 2011.; ; FINDINGS: Digital utility maintenance worker radiograph today demonstrates an IUD to the left of; midline in the pelvis along with a vaginal tampon. The lung bases show some; subsegmental discoid atelectasis in the right lower lobe posterior lung gutter; which is a new finding. There is a thin sliver of pleural fluid in the right; base as well. This could be a subtle or early infiltrate.; ; The liver and spleen are homogeneous in texture. The liver measures 16.6 cm in; vertical span in the midclavicular line, which is at the upper range of normal.; This is unchanged. No focal hepatic lesion is seen. The gallbladder and the; pancreas are unremarkable. No adrenal lesion is seen on either side.; ; There is no evidence of hydronephrosis or intrarenal calculus in either kidney.; The patient is apparently status post gastric bypass surgery. Small and large; intestinal bowel loops are normal in the upper abdomen and pelvis. A normal; appendix is seen in the right lower quadrant. There is a tiny supraumbilical; ventral hernia transmitting a small quantity of intra-abdominal fat.; ; The IUD is seen in good position in the uterus, which is tipped somewhat to the; left. No adnexal or pelvic mass is seen. No adenopathy noted. Bone window; settings show no bony destructive lesion.; ; IMPRESSION:; ; 1. Infiltrate versus subsegmental atelectasis in the posterior aspect of the; right lower lobe with a small amount of right pleural fluid.; ; 2. No urinary tract calculus or hydronephrosis seen.; ; 3. Borderline sized liver unchanged.; ; 4. Patient status post gastric bypass. IUD in place along with vaginal tampon; noted incidentally.; ; 5. Very small supraumbilical ventral hernia transmitting a small quantity of; omental fat.; ; ; Signed by; Josemanuel Wolff MD 10/14/2016 06:35 P; Radiology Order: Chest, 2 View (pa\E\lat) Test: Chest, 2 View (pa\E\lat) REASON FOR EXAMINATION: ? pleural effusion on abd CT; Chest two views; ; HISTORY: Pleural effusion; ; Comparison: 07/18/2016; ; The lungs are clear. The heart is normal in size. The pulmonary vasculature is; normal in appearance. The bony structure is intact.; ; IMPRESSION: No acute disease.; ; ; Signed by; Kermit Pappas MD 10/14/2016 01:04 P; Outcome: 11:16 CT Study completed. ttb 14:15 Discharge ordered by Provider. btw 14:40 Discharge Assessment: Patient awake, alert and oriented x 3. No cognitive and/or k functional deficits noted. Patient verbalized understanding of disposition instructions. patient administered narcotics - no. The following High Risk Discharge criteria are identified: None. Discharged to home ambulatory. Condition: good. Discharge instructions given to patient, Instructed on discharge instructions, follow up and referral plans. medication usage, no driving heavy equipment, Demonstrated understanding of instructions, medications, Pt was receptive of discharge instructions/ teaching. Prescriptions given X 1. Property :Personal belongings accompany Pt. 14:42 Patient left the ED. jayk Signatures: Dispatcher [employer] EDYonathan GomezRN Ivon Pelayo RN Rochelle Weber mcp, Reg Reg gb Dion Schaeffer, Reg Reg lg Brandon Harvey RN RN mlb1 Jose Miguel Dyson PA PA btw Dennise Motley cmBella Delgadillo, RN RN ttb Xin Cochran, GROUP SALES COORDINATOR GROUP SALES COORDINATOR Arcelia Chávez RN RN ead Crane, Kelsi,RN RN kc3 Livier Funez nb2 Chart Complete MTDD
--- NOTE | 2016-10-16 15:42 | EDDOCDS ---
Physician Documentation [facility] Name: Gladys Temple Age: 46 yrs Sex: Female : 1970 Arrival Date: 10/14/2016 Time: 09:42 Bed I5 / M5 Private MD: Myriam Hurst Disposition: 10/14/16 14:15 Discharged to Home/Self Care. Impression: Pleural effusion in other conditions classified elsewhere, Abdominal and pelvic pain. - Condition is Stable. - Discharge Instructions: Pleural Effusion, Flank Pain, [id number]. - Prescriptions for Zithromax Z- Shaheen 250 mg Oral Tablet - take 1 tablet by ORAL route as directed for 5 days Day 1- take two tablets once. Day 2, 3, 4 , 5 take one tablet once daily.; 6 tablet. - Medication Reconciliation, Local Pharmacy Hours form. - Follow up: Myriam Hurst; When: Call to arrange an appointment; Reason: Further diagnostic work-up, Recheck today's complaints, Continuance of care. - Problem is new. - Symptoms are unchanged. Historical: - Allergies: PENICILLINS; - Home Meds: 1. trazodone 50 mg Oral tab nightly 2. tramadol 50 mg Oral tab every 8 hours as needed - PMHx: cervical disc issues; insomnia; - PSHx: gastric sleeve; - Social history: Smoking status: Patient states was never smoker of tobacco. No barriers to communication noted, The patient speaks fluent Polish, Speaks appropriately for age. - Family history: Not pertinent. - : The pt / caregiver states he / she is not on anticoagulants. Home medication list is obtained from the patient. - Exposure Risk Screening:: None identified. 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 4 in. (162.56 cm); Pain 8/10; 14:39 BP 107 / 59; Pulse 65; Resp 18; Temp 97.8(TE); Pulse Ox 98% on R/A; Pain 5/10; nb2 09:43 Body Mass Index 24.03 (63.50 kg, 162.56 cm) elp MDM: 10:44 Financial registration complete. lg 10:45 ketorolac 30 mg IM once ordered. btw 10:46 Amylase Ordered. EDMS 10:46 Basic Metabolic Profile Ordered. EDMS 10:46 CBC with Diff Ordered. EDMS 10:46 Lipase Ordered. EDMS 10:46 Liver Profile Ordered. EDMS 10:46 Urinalysis Ordered. EDMS 10:46 Urine Culture Ordered. EDMS 10:47 NOTHING BY MOUTH+DIET ordered. EDMS 10:48 CT ABD & PELVIS: No Contrast Ordered. EDMS 10:59 [facility] Payment Agreement was scanned into [employer] and attached to record. lg 12:02 Basic Metabolic Profile Reviewed. btw 12:02 CBC with Diff Reviewed. btw 12:02 Liver Profile Reviewed. btw 12:02 Urinalysis Reviewed. btw 12:02 Amylase Reviewed. btw 12:02 Lipase Reviewed. btw 12:02 CT ABD & PELVIS: No Contrast Reviewed. btw 12:08 IV Saline Lock ordered. btw 12:09 Chest, 2 View (pa\E\lat) Ordered. EDMS 12:15 -Blood Culture (Adults Only), peripheral from different site, or from device/port/PICC btw etc. if present ordered. 12:17 -Blood Culture Ordered. EDMS 12:18 -Blood Culture (Adults Only), peripheral from different site, or from device/port/PICC nb2 etc. if present complete. 12:18 BLOOD CULTURES Ordered. EDMS 15:22 T-Sheet-- Draft Copy was scanned into [employer] and attached to record. gb Administered Medications: 11:16 Drug: ketorolac 30 mg [ketorolac 30 mg/mL (1 mL) injection solution (1 mL)] Route: IM; ttb Site: right gluteus; Signatures: Dispatcher [employer] EDMS Yonathan Curran,RN RN Rochelle Miller, Reg Reg Dion Banegas, Reg Reg Brandon Phelps RN RN mlb1 Jose Miguel Dyson PA PA btw Bella Muñoz RN RN ttb Livier Funez nb2 The chart was reviewed and I authenticate all verbal orders and agree with the evaluation and treatment provided.Attachments: 10:59 [facility] Payment Agreement lg 15:22 T-Sheet-- Draft Copy gb Chart Complete MTDD
== END 2016-10-14 14:42 | disposition home or self-care (01) ==
LOC: M ED 09:42
DX: J18.9 Pneumonia, unspecified organism (principal); G47.00 Insomnia, unspecified; M50.90 Cervical disc disorder, unspecified, unspecified cervical region; Z79.899 Other long term (current) drug therapy; Z88.0 Allergy status to penicillin; F17.210 Nicotine dependence, cigarettes, uncomplicated
CPT/HCPCS: 36415; 71020; 74176; 80048; 80076; 81001; 82150; 83690; 85025; 87040; 87086; 96372; 99284; J1885

== ENCOUNTER → 2016-11-09 | Outpatient (CLI) | payer OTHER, MEDICAID ==
--- NOTE | 2016-11-09 23:44 | ECWPNPC ---
PATIENT NAME: GABINO PRECIADO : 1970 GENDER: FEMALE VISIT DATE: 11/09/2016 DISCHARGE DATE: 11/09/16 1521 VISIT LOCKED DATE TIME: PHYSICIAN: YOSELIN PRIDE RESOURCE: YOSELIN PRIDE REASON FOR APPOINTMENT 1. 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 PAIN THE PATIENT DESCRIBES THE PAIN... FALL RISK SCREENING: SCREENING :NO FALLS IN THE PAST YEAR CURRENT MEDICATIONS TAKING TRAZODONE HCL 100 MG TABLET 0.5 TABLET AT BEDTIME NEEDED ORALLY ONCE A DAY TAKING FERROUS SULFATE 325 (65 FE) MG TABLET 1 TABLET ORALLY ONCE A DAY TAKING TRAMADOL HCL 50 MG TABLET 1 TAB ORALLY FOR PAIN Q8H PRN MDD 3 MEDICATION LIST REVIEWED AND RECONCILED WITH THE PATIENT PAST MEDICAL HISTORY NECK PAIN ANEMIA VITAMIN D DEFIENCY IRREGULAR HEARTBEAAT ALLERGIES PENICILLIN: HIVES SURGICAL HISTORY BARIATRIC SURGURY (GASTRIC SLEEVE) 2013 LOOP RECORDER 07/2016 SOCIAL HISTORY GENERAL: TOBACCO USE ARE YOU A:NONSMOKER LEARNING BARRIERS / SPECIAL NEEDS ORIENTED TO PLAN OF CARE: PATIENT, PAIN MANAGEMENT PATIENT, ORIENTED TO PLAN OF CARE: PATIENT, PAIN MANAGEMENT PATIENT. NEW PATIENT PAIN DIARY TODAY'S VISITNOTES FROM 0-10, WHAT LEVEL IS YOUR PAIN TODAY?0 PAIN CLINIC PFS, CLERGY, PUBLIC HEALTH REFERRALS PFS REFERRAL NEEDED?NO CLERGY REFERRAL NEEDED?NO PUBLIC HEALTH REFERRAL NEEDED?NO WAS THE PROVIDER NOTIFIED OF ANY PERTINENT INFO?NO PFS REFERRAL NEEDED?NO CLERGY REFERRAL NEEDED?NO PUBLIC HEALTH REFERRAL NEEDED?NO WAS THE PROVIDER NOTIFIED OF ANY PERTINENT INFO?NO HOSPITALIZATION/MAJOR DIAGNOSTIC PROCEDURE RELATED TO SURGERY AND CHILDBIRTH REVIEW OF SYSTEMS CONSTITUTIONAL: ANY CHANGE IN YOUR MEDICAL CONDITION? NO . CHILLS NO . FEVER NO . INFECTION: DO YOU HAVE NEW INFECTIONS? NO . DO YOU HAVE HISTORY OF MRSA? NO . MUSCULOSKELETAL: ANY NEW PATTERNS OF PAIN OR NUMBNESS? NO . GASTROENTEROLOGY: ANY NEW CHANGE IN BOWEL CONTROL? NO . GENITOURINARY: ANY NEW CHANGE IN BLADDER CONTROL? NO . IS THERE A CHANCE YOU COULD BE ? NO . HEMATOLOGY/LYMPH: DO YOU TAKE ANY BLOOD THINNERS? (FOR EXAMPLE- COUMADIN, PLAVIX, AGGRENOX, PLATEL, PRADAXA, OR XARELTO) NO . WHEN WAS YOUR LAST DOSE? DATE: TIME: . NEUROLOGY: HAVE YOU FALLEN IN THE PAST 6 MONTHS? NO . ANY NEW EXTREMITY NUMBNESS OR WEAKNESS? NO . CARDIOLOGY: DO YOU HAVE A PACEMAKER OR DEFIBRILLATOR? NO . RESPIRATORY: HAVE YOU BEEN SICK IN THE PAST WEEK? NO . FEVER NO . FLU LIKE SYMPTOMS? NO . COUGH NO . INTEGUMENTARY: DO YOU HAVE ANY RASHES OR OPEN SORES? NO . ALLERGIC/IMMUNO: ARE YOU ALLERGIC TO SHELLFISH OR IV DYE? NO . ANY NEW ALLERGIES? NO . PSYCHIATRIC: DO YOU HAVE THOUGHTS OF HURTING YOURSELF OR SOMEONE ELSE? NO . ARE YOU ABUSED, NEGLECTED, OR IN AN UNSAFE ENVIRONMENT? NO . ENDOCRINOLOGY: ARE YOU DIABETIC? NO . OTHER: DO YOU NEED ANY PRESCRIPTIONS? YES . IF YES, PLEASE LIST: TRAMADOL, ? TRAZODONE . ANY NEW PROBLEMS WITH YOUR MEDICATIONS? NO . WHEN DID YOU LAST EAT? ____ . WHEN DID YOU LAST DRINK? ____ . WHAT DID YOU LAST DRINK? ____ . NAME OF PERSON DRIVING YOU HOME? ____ . DO YOU HAVE ANY OTHER QUESTIONS OR CONCERNS NO . REVIEWED BY: PROVIDER: YOSELIN DON . VITAL SIGNS WT 148.2 LBS, HT 63", BMI 26.25 INDEX, BP 112/61 MM HG, HR 85 /MIN, RR 16 /MIN, TEMP 96.7 F, OXYGEN SAT % 98%, NA INITIALS SC 14:54. EXAMINATION GENERAL EXAMINATION: LUNGS:LUNG SOUNDS ARE CLEAR. HEART:HEART RATE REGULAR. MUSCULOSKELETAL:*, MUSCLE STRENGTH TESTING 5/5 BILATERAL, UPPER EXTREMITIES. PALPATION: NEGATIVE FOR PAIN OVER CERVICAL SPINE. NEGATIVE FOR PAIN OVER CERVICAL PARSPINALS. DIAGNOSTIC: . ASSESSMENTS MYALGIA - M79.1 (PRIMARY) TREATMENT MYALGIA REFILL TRAMADOL HCL TABLET, 50 MG, 1 TAB, ORALLY FOR PAIN, Q8H PRN MDD 3, 15 DAYS, 45, REFILLS 2 DISPOSITION & COMMUNICATION FOLLOW UP 3 MONTHS ELECTRONICALLY SIGNED BY ARIAN JOSÉ ON 11/09/2016 AT 05:03 PM EST DISCLAIMER : THIS IS A VISIT SUMMARY EXTRACTED FROM THE [employer] CHART. IT IS NOT A COPY OF THE [employer] PROGRESS NOTE. TALA
== END ==
LOC: M PAIN 14:40
PROVIDERS: ATTEND Nurse Practitioner Family
DX: Z09 Encounter for follow-up examination after completed treatment for conditions other than malignant neoplasm (principal); G89.29 Other chronic pain; M79.1 Myalgia; M54.2 Cervicalgia; D64.9 Anemia, unspecified; E55.9 Vitamin D deficiency, unspecified; I49.9 Cardiac arrhythmia, unspecified; Z79.899 Other long term (current) drug therapy; Z79.891 Long term (current) use of opiate analgesic; Z98.84 Bariatric surgery status; Z88.0 Allergy status to penicillin

== ENCOUNTER → 2017-01-07 | Outpatient (CLI) | payer OTHER, MEDICAID ==
--- NOTE | 2017-01-07 23:44 | ECWPNPC ---
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 BID. PAIN THE PATIENT DESCRIBES THE PAIN... THE PATIENT DESCRIBES THE PAIN... FALL RISK SCREENING: SCREENING :NO FALLS IN THE PAST YEAR CURRENT MEDICATIONS TAKING FERROUS SULFATE 325 (65 FE) MG TABLET 1 TABLET ORALLY ONCE A DAY TAKING TRAMADOL HCL 50 MG TABLET 1 TAB ORALLY FOR PAIN Q8H PRN MDD 3 TAKING TIZANIDINE HCL 4 MG TABLET 1 TABLET NEEDED ORALLY THREE TIMES A DAY, NOTES: ONLY TAKING @ HS DISCONTINUED TRAZODONE HCL 100 MG TABLET 0.5 TABLET AT BEDTIME NEEDED ORALLY ONCE A DAY MEDICATION LIST REVIEWED AND RECONCILED WITH THE PATIENT PAST MEDICAL HISTORY NECK PAIN ANEMIA VITAMIN D DEFIENCY IRREGULAR HEARTBEAAT ALLERGIES PENICILLIN: HIVES SOCIAL HISTORY GENERAL: PAIN CLINIC PFS, CLERGY, PUBLIC HEALTH REFERRALS CLERGY REFERRAL NEEDED?NO WAS THE PROVIDER NOTIFIED OF ANY PERTINENT INFO?NO PFS REFERRAL NEEDED?NO PUBLIC HEALTH REFERRAL NEEDED?NO PATIENT: ____. REVIEW OF SYSTEMS CONSTITUTIONAL: ANY CHANGE IN YOUR MEDICAL CONDITION? NO . CHILLS NO . FEVER NO . INFECTION: DO YOU HAVE NEW INFECTIONS? NO . DO YOU HAVE HISTORY OF MRSA? NO . MUSCULOSKELETAL: ANY NEW PATTERNS OF PAIN OR NUMBNESS? YES, NECK PAIN HAS INCREASED. . GASTROENTEROLOGY: ANY NEW CHANGE IN BOWEL CONTROL? NO . GENITOURINARY: ANY NEW CHANGE IN BLADDER CONTROL? NO . IS THERE A CHANCE YOU COULD BE ? NO . HEMATOLOGY/LYMPH: DO YOU TAKE ANY BLOOD THINNERS? (FOR EXAMPLE- COUMADIN, PLAVIX, AGGRENOX, PLATEL, PRADAXA, OR XARELTO) NO . WHEN WAS YOUR LAST DOSE? DATE: TIME: . NEUROLOGY: HAVE YOU FALLEN IN THE PAST 6 MONTHS? NO . ANY NEW EXTREMITY NUMBNESS OR WEAKNESS? NO . CARDIOLOGY: DO YOU HAVE A PACEMAKER OR DEFIBRILLATOR? NO . RESPIRATORY: HAVE YOU BEEN SICK IN THE PAST WEEK? NO . FEVER NO . FLU LIKE SYMPTOMS? NO . COUGH NO . INTEGUMENTARY: DO YOU HAVE ANY RASHES OR OPEN SORES? NO . ALLERGIC/IMMUNO: ARE YOU ALLERGIC TO SHELLFISH OR IV DYE? NO . ANY NEW ALLERGIES? NO . PSYCHIATRIC: DO YOU HAVE THOUGHTS OF HURTING YOURSELF OR SOMEONE ELSE? NO . ARE YOU ABUSED, NEGLECTED, OR IN AN UNSAFE ENVIRONMENT? NO . ENDOCRINOLOGY: ARE YOU DIABETIC? NO . OTHER: DO YOU NEED ANY PRESCRIPTIONS? NO . IF YES, PLEASE LIST: ____ . ANY NEW PROBLEMS WITH YOUR MEDICATIONS? NO . WHEN DID YOU LAST EAT? ____ . WHEN DID YOU LAST DRINK? ____ . WHAT DID YOU LAST DRINK? ____ . NAME OF PERSON DRIVING YOU HOME? ____ . DO YOU HAVE ANY OTHER QUESTIONS OR CONCERNS PAIN IS INCREASING IN HER NECK. SHE WOULD LIKE TO DISCUSS GETTING SOMETHING STRONGER FOR PAIN. THE TRAMADOL ISN'T EFFECTIVE.&NBSP;. REVIEWED BY: PROVIDER: YOSELIN DON . VITAL SIGNS WT 147.8 LBS, HT 63", BMI 26.18 INDEX, BP 113/78 MM HG, HR 78 /MIN, RR 16 /MIN, TEMP 97.7 F, OXYGEN SAT % 96%, NA INITIALS SC 09:52, REVIEWED BY: ANA. EXAMINATION GENERAL EXAMINATION: LUNGS:LUNG SOUNDS ARE CLEAR. HEART:HEART RATE REGULAR. MUSCULOSKELETAL:*, MUSCLE STRENGTH TESTING 5/5 BILATERAL, UPPER EXTREMITIES. PALPATION: NEGATIVE FOR PAIN OVER CERVICAL SPINE. NEGATIVE FOR PAIN OVER CERVICAL PARSPINALS. DIAGNOSTIC: . ASSESSMENTS MYALGIA - M79.1 (PRIMARY) CERVICALGIA - M54.2 TREATMENT MYALGIA REFILL TRAMADOL HCL TABLET, 50 MG, 1 TAB, ORALLY FOR PAIN, Q6H PRN PAIN MDD4, 30 DAY(S), 120, REFILLS 2 REFERRAL TO:PHYSICAL THERAPIST REASON:2XWK X 8WK-MYOFASCIAL RELEASE PROCEDURE CODES FA211 ESTABILISHED PATIENT [facility] FACILITY CHARGE DISPOSITION & COMMUNICATION FOLLOW UP 2 MONTHS ELECTRONICALLY SIGNED BY ARIAN JOSÉ ON 01/07/2017 AT 03:27 PM EDT DISCLAIMER : THIS IS A VISIT SUMMARY EXTRACTED FROM THE [employer] CHART. IT IS NOT A COPY OF THE [employer] PROGRESS NOTE. TALA
== END ==
LOC: M PAIN 09:40
PROVIDERS: ATTEND Nurse Practitioner Family
DX: G89.29 Other chronic pain (principal); M79.1 Myalgia; M54.2 Cervicalgia; D64.9 Anemia, unspecified; E55.9 Vitamin D deficiency, unspecified; I49.9 Cardiac arrhythmia, unspecified; Z88.0 Allergy status to penicillin; Z79.891 Long term (current) use of opiate analgesic; Z79.899 Other long term (current) drug therapy

== ENCOUNTER 2017-09-14 19:48 | Emergency (ER) | payer MEDICAID, OTHER ==
[2017-09-14] MEDS: PERCOCET 5MG/325MG TAB PO (23:02)
== END 2017-09-14 23:00 | disposition home or self-care (01) ==
LOC: M ED 19:48
DX: G89.29 Other chronic pain (principal); M54.2 Cervicalgia; Z88.0 Allergy status to penicillin
CPT/HCPCS: 99282

== ENCOUNTER 2017-10-26 08:12 | Emergency (ER) | payer OTHER, MEDICAID ==
[2017-10-26] MEDS: IPRATROPIUM 0.5MG/ALBUTEROL 2.5MG INH SOL UD 3ML (DUONEB)(J7620) NEB (09:44)
[2017-10-26 10:26] LABS: INFLUENZA A AMPLIFICATION NEGATIVE (NEGATIVE); INFLUENZA B AMPLIFICATION NEGATIVE (NEGATIVE); RSV AMPLIFICATION NEGATIVE (NEGATIVE)
[2017-10-26 10:34] LABS: BASO % 0.3 % (0.0-1.0); EOS % 0.3 % (0.0-3.0); HEMATOCRIT 42.4 % (36.0-47.0); HEMOGLOBIN 14.1 g/dl (12.0-16.0); IMMATURE GRANULOCYTE # 0.1 10^3/uL (0-0); IMMATURE GRANULOCYTE % 0.4 % (0-0); LYMPH # 1.8 10^3/uL (1.5-4.5); LYMPH % 12.7 % (24.0-44.0); MEAN CORPUSCULAR HEMOGLOBIN 29.9 pg (27.0-33.0); MEAN CORPUSCULAR HGB CONC 33.3 g/dl (32.0-36.5); MONO # 0.7 10^3/uL (0.0-0.8); MONO % 4.7 % (0.0-5.0); NEUTROPHILS # 11.6 10^3/uL (1.8-7.7); NEUTROPHILS % 81.6 % (36.0-66.0); PLATELET COUNT, AUTOMATED 222 10^3/uL (150-450); RED BLOOD COUNT 4.71 10^6/uL (4.00-5.40); RED CELL DISTRIBUTION WIDTH 12.9 % (11.5-14.5); WHITE BLOOD COUNT 14.2 10^3/uL (4.0-10.0)
[2017-10-26 10:53] LABS: ANION GAP 10 MEQ/L (8-16); BLOOD UREA NITROGEN 17 MG/DL (7-18); CALCIUM LEVEL 8.9 MG/DL (8.5-10.1); CARBON DIOXIDE LEVEL 25 MEQ/L (21-32); CHLORIDE LEVEL 104 MEQ/L (98-107); CREATININE FOR GFR 0.79 MG/DL (0.55-1.30); GLOMERULAR FILTRATION RATE > 60.0 (>58); GLUCOSE, FASTING 80 MG/DL (70-100); POTASSIUM SERUM 3.9 MEQ/L (3.5-5.1); SODIUM LEVEL 139 MEQ/L (136-145)
== END 2017-10-26 11:42 | disposition home or self-care (01) ==
LOC: M ED 08:12
DX: J06.9 Acute upper respiratory infection, unspecified (principal); Z88.0 Allergy status to penicillin
CPT/HCPCS: 71046

== ENCOUNTER 2021-10-28 15:09 | Emergency (ER) | payer OTHER ==
[~2021-10-28] VITALS: Ht 162.6 cm; Wt 65.0 kg
[~2021-10-28 15:09] MED LIST: ADVI200T PO; CHERSYP3 PO; E-ZMIS3 XX; OXYC1TAB23 PO; PROAAER10 INH; TESS100C PO
[2021-10-28] MEDS ORDERED: CLIN-250 (15:17)
[2021-10-28] MEDS ORDERED: KETOROLAC 30 MG/ML 1ML VIAL IV ONE (15:35)
[2021-10-28] MEDS ORDERED: NS 1,000 ML IV ONE (15:35)
[2021-10-28] MEDS ORDERED: CLINDAMYCIN 900 MG in IV 1 EA IV ONE (15:35)
[2021-10-28 15:52] LABS: BASO % 0.2 % (0.0-1.0); EOS # 0.1 10^3/uL (0.0-0.5); EOS % 0.6 % (0.0-3.0); HEMATOCRIT 41.6 % (36.0-47.0); HEMOGLOBIN 13.3 g/dl (12.0-15.5); LYMPH # 1.3 10^3/uL (1.5-5.0); MEAN CORPUSCULAR HEMOGLOBIN 28.4 pg (27.0-33.0); MEAN CORPUSCULAR VOLUME 88.9 fl (80.0-96.0); MONO # 0.7 10^3/uL (0.0-0.8); MONO % 7.9 % (2.0-8.0); NEUTROPHILS # 7.1 10^3/uL (1.5-8.5); NEUTROPHILS % 76.8 % (36.0-66.0); PLATELET COUNT, AUTOMATED 293 10^3/uL (150-450); RED BLOOD COUNT 4.68 10^6/uL (4.00-5.40); WHITE BLOOD COUNT 9.2 10^3/uL (4.0-10.0)
[2021-10-28] MEDS ORDERED: ISOVUE-370 76% 100ML VIAL As Ordered ONE (16:19)
[2021-10-28 16:22] LABS: BLOOD UREA NITROGEN 10 MG/DL (7-18); CALCIUM LEVEL 9.3 MG/DL (8.5-10.1); CARBON DIOXIDE LEVEL 28 MEQ/L (21-32); CHLORIDE LEVEL 102 MEQ/L (98-107); GLOMERULAR FILTRATION RATE > 60.0 (>58); GLUCOSE, FASTING 84 MG/DL (70-100); SODIUM LEVEL 137 MEQ/L (136-145)
[2021-10-28] MEDS ORDERED: dexameTHASONE 20MG/5ML VIAL (J1100 PER 1MG) IV ONE (18:25)
[2021-10-28] MEDS ORDERED: MOXIFLOXACIN HCL 400 MG in IV 1 EA IV ONE (18:25)
[2021-10-28] MEDS ORDERED: CLEO150C PO (19:28)
[2021-10-28] MEDS ORDERED: CLEO300C2 PO (19:28)
[2021-10-28 19:33] VITALS: BP 129/70
== END 2021-10-28 19:43 | disposition home or self-care (01) ==
LOC: M ED 15:09
DX: K02.9 Dental caries, unspecified (principal); L03.211 Cellulitis of face; Z88.0 Allergy status to penicillin
CPT/HCPCS: 36415; 70491; 80048; 84702; 85025; 96365; 96367; 96375; 99284; J1100; J1885; J2280; Q9967

== ENCOUNTER 2021-10-31 04:04 | Observation (INO) | payer OTHER ==
[~2021-10-31] VITALS: Ht 162.6 cm; Wt 60.7 kg
[~2021-10-31 04:04] MED LIST changes: +CLEO150C PO; +CLEO300C2 PO; +CLIN-250
[2021-10-31] MEDS ORDERED: CLIN150C17 PO (04:30)
[2021-10-31] MEDS ORDERED: ADVITAB PO (04:31)
[2021-10-31] MEDS ORDERED: ADVICAP PO (04:31)
[2021-10-31 06:23] LABS: BASO # 0.1 10^3/uL (0.0-0.2); BASO % 0.5 % (0.0-1.0); EOS # 0.2 10^3/uL (0.0-0.5); EOS % 1.5 % (0.0-3.0); HEMATOCRIT 41.8 % (36.0-47.0); HEMOGLOBIN 13.1 g/dl (12.0-15.5); LYMPH % 29.9 % (24.0-44.0); MEAN CORPUSCULAR HEMOGLOBIN 28.5 pg (27.0-33.0); MEAN CORPUSCULAR HGB CONC 31.3 g/dl (32.0-36.5); MEAN CORPUSCULAR VOLUME 90.9 fl (80.0-96.0); MONO # 0.8 10^3/uL (0.0-0.8); NEUTROPHILS # 5.9 10^3/uL (1.5-8.5); NEUTROPHILS % 59.7 % (36.0-66.0); PLATELET COUNT, AUTOMATED 300 10^3/uL (150-450); WHITE BLOOD COUNT 9.9 10^3/uL (4.0-10.0)
[2021-10-31 06:51] LABS: BLOOD UREA NITROGEN 12 MG/DL (7-18); C REACTIVE PROTEIN QUANTITATIV 1.49 MG/DL (0.00-0.30); CALCIUM LEVEL 8.8 MG/DL (8.5-10.1); CARBON DIOXIDE LEVEL 24 MEQ/L (21-32); CHLORIDE LEVEL 106 MEQ/L (98-107); CREATININE FOR GFR 0.69 MG/DL (0.55-1.30); GLOMERULAR FILTRATION RATE > 60.0 (>58); GLUCOSE, FASTING 79 MG/DL (70-100); POTASSIUM SERUM 4.3 MEQ/L (3.5-5.1); SODIUM LEVEL 138 MEQ/L (136-145)
[2021-10-31] MEDS ORDERED: KETOROLAC 30 MG/ML 1ML VIAL IV ONE ×2 (07:35→14:40)
[2021-10-31] MEDS ORDERED: MOXIFLOXACIN HCL 400 MG in IV 1 EA IV ONE (08:15)
[2021-10-31] MEDS ORDERED: ADVI200T PO (08:25)
[2021-10-31] MEDS ORDERED: HOME MED LIST COMPLETE! XX SCH (08:30)
[2021-10-31 08:45] VITALS: BP 159/78
[2021-10-31] MEDS ORDERED: amLODIPine 5 MG TAB PO ONE (08:45)
[2021-10-31 09:32] LABS: RSV AMPLIFICATION NEGATIVE (NEGATIVE)
[2021-10-31] MEDS: NS 1,000 ML IV SCH ×2 (09:47→20:20)
[2021-10-31] MEDS: metroNIDAZOLE 500 MG in IV 1 EA IV SCH ×2 (09:50→18:12)
[2021-10-31 13:00] VITALS: BP 134/85
[2021-10-31 14:00] VITALS: BP 135/86
[2021-10-31] MEDS: ACETAMINOPHEN TAB 650MG DOSE (2X325MG) PO PRN (18:34)
[2021-10-31] MEDS: cefTRIAXone SOD 2 GM in D5W MINI-BAG PLUS 50 ML IV SCH (20:20)
[2021-10-31 22:00] VITALS: BP 127/73
[2021-10-31] MEDS: KETOROLAC 30 MG/ML 1ML VIAL IV PRN (22:06)
[2021-11-01 02:18] VITALS: BP 164/90
[2021-11-01] MEDS: metroNIDAZOLE 500 MG in IV 1 EA IV SCH ×3 (02:20→17:50)
[2021-11-01] MEDS: ACETAMINOPHEN TAB 650MG DOSE (2X325MG) PO PRN ×3 (03:20→22:48)
[2021-11-01 05:40] VITALS: BP 157/88
[2021-11-01] MEDS: KETOROLAC 30 MG/ML 1ML VIAL IV PRN ×2 (06:07→17:55)
[2021-11-01 06:09] LABS: HEMATOCRIT 35.1 % (36.0-47.0); HEMOGLOBIN 11.2 g/dl (12.0-15.5); MEAN CORPUSCULAR HEMOGLOBIN 27.9 pg (27.0-33.0); MEAN CORPUSCULAR HGB CONC 31.9 g/dl (32.0-36.5); MEAN CORPUSCULAR VOLUME 87.3 fl (80.0-96.0); PLATELET COUNT, AUTOMATED 268 10^3/uL (150-450); RED BLOOD COUNT 4.02 10^6/uL (4.00-5.40); WHITE BLOOD COUNT 7.3 10^3/uL (4.0-10.0)
[2021-11-01 06:17] LABS: BLOOD UREA NITROGEN 7 MG/DL (7-18); CALCIUM LEVEL 7.9 MG/DL (8.5-10.1); CARBON DIOXIDE LEVEL 25 MEQ/L (21-32); CHLORIDE LEVEL 109 MEQ/L (98-107); CREATININE FOR GFR 0.58 MG/DL (0.55-1.30); GLOMERULAR FILTRATION RATE > 60.0 (>58); GLUCOSE, FASTING 86 MG/DL (70-100); MAGNESIUM LEVEL 2.1 MG/DL (1.8-2.4); PHOSPHORUS LEVEL 3.3 MG/DL (2.5-4.9); POTASSIUM SERUM 3.6 MEQ/L (3.5-5.1); SODIUM LEVEL 140 MEQ/L (136-145)
[2021-11-01] MEDS ORDERED: LIDOCAINE 2% W/ EPINEPHRINE 1.7 ML DENTAL INJ As Ordered ONE ×3 (11:03→13:26)
[2021-11-01] MEDS ORDERED: CHLORHEXIDINE GLUCONATE 0.12 % 15ML UDC (PERIDEX ORAL RINSE) As Ordered ONE (11:03)
[2021-11-01] MEDS ORDERED: MIDAZOLAM INJ 2MG/2ML VIAL (J2250 PER 1MG) As Ordered ONE ×2 (11:51→12:55)
[2021-11-01] MEDS ORDERED: fentaNYL 250 MCG/5 ML INJECTION As Ordered ONE (11:51)
[2021-11-01] MEDS ORDERED: LIDOCAINE 2% 100MG/5ML SDV (FOR ANES.) As Ordered ONE (11:51)
[2021-11-01] MEDS ORDERED: propofoL 200 MG/20 ML VIAL As Ordered ONE (11:52)
[2021-11-01] MEDS ORDERED: ROCURONIUM BROMIDE 50 MG/5 ML VIAL As Ordered ONE (11:52)
[2021-11-01] MEDS ORDERED: dexameTHASONE 4 MG/ML 1ML VIAL (J1100 PER 1MG) As Ordered ONE ×2 (11:55→12:37)
[2021-11-01] MEDS ORDERED: ONDANSETRON 4MG/2ML VIAL As Ordered ONE (11:55)
[2021-11-01] MEDS ORDERED: ACETAMINOPHEN 1000MG 100ML IV BTL (OFIRMEV) (J0131 PER 10MG) As Ordered ONE (11:56)
[2021-11-01] MEDS ORDERED: LIDOCAINE 2% JELLY 5ML TUBE As Ordered ONE (12:04)
[2021-11-01] MEDS ORDERED: OXYMETAZOLINE 0.05% NASAL SPRAY (AFRIN) As Ordered ONE (12:06)
[2021-11-01] MEDS ORDERED: SUGAMMADEX SODIUM 500 MG/5 ML VIAL (BRIDION) As Ordered ONE (12:42)
[2021-11-01] MEDS ORDERED: fentaNYL 100 MCG/2 ML INJECTION IV PRN (13:40)
[2021-11-01] MEDS ORDERED: ONDANSETRON 4MG/2ML VIAL IV PRN (13:40)
[2021-11-01] MEDS ORDERED: LR 1,000 ML IV SCH (13:40)
[2021-11-01] MEDS ORDERED: oxyCODONE 5MG TAB PO PRN (13:40)
[2021-11-01] MEDS ORDERED: HYDROMORPHONE HCL 0.5 MG/ 0.5 ML SYRINGE (J1170 PER 1) IV PRN (13:40)
[2021-11-01 14:14] VITALS: BP 151/89
[2021-11-01 16:30] VITALS: BP 118/73
[2021-11-01] MEDS: cefTRIAXone SOD 2 GM in D5W MINI-BAG PLUS 50 ML IV SCH (21:26)
[2021-11-01 22:00] VITALS: BP 91/62
[2021-11-02] MEDS: metroNIDAZOLE 500 MG in IV 1 EA IV SCH ×2 (01:36→09:11)
[2021-11-02 02:00] VITALS: BP 102/64
[2021-11-02] MEDS: KETOROLAC 30 MG/ML 1ML VIAL IV PRN (02:41)
[2021-11-02 06:00] VITALS: BP 105/63
[2021-11-02] MEDS: ACETAMINOPHEN TAB 650MG DOSE (2X325MG) PO PRN (09:11)
[2021-11-02 10:00] VITALS: BP 119/67
[2021-11-02] MEDS ORDERED: METR-265 PO (10:40)
[2021-11-02] MEDS ORDERED: CEFD300C41 PO (10:40)
[2021-11-02] MEDS ORDERED: KETO10TAB PO (10:41)
== END 2021-11-02 11:25 | disposition home or self-care (01) ==
LOC: M ED 04:04 → M ED INP 08:40 → ENRESERV 11:35 → M MSPAV 12:56 → M MS5PR 11-01 02:07
PROVIDERS: ADMIT Internal Medicine; ATTEND Internal Medicine
DX: K02.9 Dental caries, unspecified (principal); K12.2 Cellulitis and abscess of mouth; L03.221 Cellulitis of neck; R59.0 Localized enlarged lymph nodes; Z98.84 Bariatric surgery status; Z79.2 Long term (current) use of antibiotics; Z79.891 Long term (current) use of opiate analgesic; Z88.0 Allergy status to penicillin
CPT/HCPCS: 36415; 80048; 83735; 84100; 85025; 85027; 86140; 87040; 87631; 88300; 96365; 96366; 96367; 96375; 96376; 99284; D7210; D7511; D9223; J0131; J0696; J1100; J1885; J2250; J2280; J2405; J3010

== ENCOUNTER → 2023-04-23 | Outpatient (CLI) | payer MEDICAID ==
[~2023-04-23] MED LIST changes: +ADVICAP PO; +ADVITAB PO; +CEFD300C41 PO; +CLIN150C17 PO; +KETO10TAB PO; +METR-265 PO
[2023-04-23 13:33] LABS: HEMATOCRIT 40.4 % (36.0-47.0); HEMOGLOBIN 13.2 g/dl (12.0-15.5); MEAN CORPUSCULAR HGB CONC 32.7 g/dl (32.0-36.5); MEAN CORPUSCULAR VOLUME 91.8 fl (80.0-96.0); PLATELET COUNT, AUTOMATED 205 10^3/uL (150-450); WHITE BLOOD COUNT 6.6 10^3/uL (4.0-10.0)
[2023-04-23 13:59] LABS: ALBUMIN 3.7 G/DL (3.2-5.2); ALKALINE PHOSPHATASE 72 U/L (46-116); ALT/SGPT 27 U/L (7.0-40); AST/SGOT 16 U/L (<34); BILIRUBIN,TOTAL 0.4 MG/DL (0.3-1.2); BLOOD UREA NITROGEN 16 MG/DL (9-23); CALCIUM LEVEL 8.9 MG/DL (8.5-10.1); CARBON DIOXIDE LEVEL 27 MMOL/L (20-31); CHLORIDE LEVEL 107 MMOL/L (98-107); CHOLESTEROL LEVEL 198 MG/DL (<200); CHOLESTEROL RISK RATIO 2.62 (<5); CREATININE FOR GFR 0.71 MG/DL (0.55-1.30); GLOMERULAR FILTRATION RATE > 60.0 (>51); GLUCOSE, FASTING 80 MG/DL (60-100); HDL CHOLESTEROL 75.3 MG/DL (>40); LDL CHOLESTEROL 94.1 MG/DL (<100); NON-HDL-C 122.7 MG/DL; POTASSIUM SERUM 4.5 MMOL/L (3.5-5.1); SODIUM LEVEL 142 MMOL/L (136-145); TOTAL PROTEIN 6.7 G/DL (5.7-8.2); TRIGLYCERIDES LEVEL 143 MG/DL (<150)
[2023-04-23 14:00] LABS: IRON (FE) 89 UG/DL (50-170)
[2023-04-23 14:01] LABS: THYROID STIMULATING HORMONE 1.073 uIU/ML (0.55-4.78); TOTAL 25(OH) VITAMIN D 27.8 NG/ML (20.0-100.0)
[2023-04-23 14:02] LABS: FERRITIN 4.1 NG/ML (7.3-270.7); FOLATE 11.38 NG/ML (>5.4)
== END ==
LOC: M LAB 12:59
PROVIDERS: ATTEND Registered Nurse Psychiatric/Mental Health
DX: F14.91 Cocaine use, unspecified, in remission (principal)

== ENCOUNTER → 2023-08-10 | Outpatient (CLI) | payer OTHER ==
[~2023-08-10] MED LIST changes: -CEFD300C41 PO; +CEFD300C42 PO
== END ==
LOC: M RAD 07:47
PROVIDERS: ATTEND Nurse Practitioner Family
DX: K42.9 Umbilical hernia without obstruction or gangrene (principal)

== ENCOUNTER → 2024-12-01 | Outpatient (REF) | payer OTHER ==
[~2024-12-01] MED LIST changes: +CEFD1CAP9 PO; -CEFD300C42 PO
[2024-12-05 13:57] LABS: HPV APTIMA Not Detected (Not Detected)
== END ==
LOC: M SFHCWAGY 15:20
PROVIDERS: ATTEND Obstetrics & Gynecology
DX: Z12.4 Encounter for screening for malignant neoplasm of cervix (principal); Z77.9 Other contact with and (suspected) exposures hazardous to health; R87.5 Abnormal microbiological findings in specimens from female genital organs

== ENCOUNTER → 2024-12-01 | Outpatient (CLI) | payer OTHER | LOC: M WHC 11:01 | PROVIDERS: ATTEND Obstetrics & Gynecology | DX: Z12.31 Encounter for screening mammogram for malignant neoplasm of breast (principal); R92.313 Mammographic fatty tissue density, bilateral breasts ==

== ENCOUNTER → 2025-06-12 | Outpatient (REF) | payer OTHER ==
[2025-06-12 17:38] LABS: ALT/SGPT 21 U/L (7.0-40); AST/SGOT 20 U/L (<34); CALCIUM LEVEL 8.7 MG/DL (8.5-10.1); CARBON DIOXIDE LEVEL 28 MMOL/L (20-31); CHLORIDE LEVEL 107 MMOL/L (98-107); CHOLESTEROL LEVEL 229 MG/DL (<200); CHOLESTEROL RISK RATIO 2.56 (<5); CREATININE FOR GFR 0.74 MG/DL (0.55-1.30); GLOMERULAR FILTRATION RATE > 90.0 (>51); IRON (FE) 103 UG/DL (50-170); LDL CHOLESTEROL 111.2 MG/DL (<100); NON-HDL-C 139.6 MG/DL; PERCENT SATURATION 33.6 % (13.2-45.0); POTASSIUM SERUM 4.2 MMOL/L (3.5-5.1); SODIUM LEVEL 142 MMOL/L (136-145); TOTAL 25(OH) VITAMIN D 35.9 NG/ML (20.0-100.0); TRIGLYCERIDES LEVEL 142 MG/DL (<150); VITAMIN B12 LEVEL 373 PG/ML (211-911)
[2025-06-12 18:05] LABS: BASO # 0.0 10^3/uL (0.0-0.2); BASO % 0.7 % (0.0-1.0); EOS # 0.1 10^3/uL (0.0-0.5); EOS % 2.3 % (0.0-3.0); LYMPH # 1.5 10^3/uL (1.5-5.0); LYMPH % 26.8 % (24.0-44.0); MONO # 0.5 10^3/uL (0.0-0.8); MONO % 8.1 % (2.0-8.0); NEUTROPHILS # 3.4 10^3/uL (1.5-8.5); NEUTROPHILS % 61.4 % (36.0-66.0); PLATELET COUNT, AUTOMATED 229 10^3/uL (150-450)
== END ==
LOC: M LAB REF 14:33
PROVIDERS: ATTEND Pediatrics
DX: E66.3 Overweight (principal); Z68.26 Body mass index [BMI] 26.0-26.9, adult; E55.9 Vitamin D deficiency, unspecified; K91.2 Postsurgical malabsorption, not elsewhere classified; E78.5 Hyperlipidemia, unspecified